=== PATIENT | male | born 1965 | race African-American/Black ===

== ENCOUNTER 2017-11-24 23:37 | Emergency (ER) | payer BC ==
--- NOTE | 2017-11-24 23:42 | EDM.PDOC ---
ED HPI GENERAL MEDICAL PROBLEM - General Chief Complaint: General Stated Complaint: PT HAS BODY CHILLS Time Seen by Provider: 11/24/17 23:42 Source of Information: Reports: Patient - History of Present Illness INITIAL COMMENTS - FREE TEXT/NARRATIVE: HISTORY AND PHYSICAL: History of present illness: []Patient presents with vague symptomology, he has described to triage nurse that he has had some vague chest pains over the last week previously he was scheduled for stress testing but had not perform that Patient states that subjectively feels as if he may have fever on arrival however this has resolved he is currently asymptomatic after a prolonged stay in the ER no fever nausea vomiting diarrhea constipation chest pain shortness breath headache dizziness or palpitation he denies any chest pain today Review of systems: As per history of present illness and below otherwise all systems reviewed and negative. Past medical history: As per history of present illness and as reviewed below otherwise noncontributory. Surgical history: As per history of present illness and as reviewed below otherwise noncontributory. Social history: No reported history of drug or alcohol abuse. Family history: As per history of present illness and as reviewed below otherwise noncontributory. Physical exam: HEENT: Atraumatic, normocephalic, pupils reactive, negative for conjunctival pallor or scleral icterus, mucous membranes moist, throat clear, neck supple, nontender, trachea midline. Lungs: Clear to auscultation, breath sounds equal bilaterally, chest nontender. Heart: S1S2, regular, negative for clicks, rubs, or JVD. Abdomen: Soft, nondistended, nontender. Negative for masses or hepatosplenomegaly. Negative for costovertebral tenderness. Pelvis: Stable nontender. Genitourinary: Deferred. Rectal: Deferred. Extremities: Atraumatic, negative for cords or calf pain. Neurovascular unremarkable. Neuro: Awake, alert, oriented. Cranial nerves II through XII unremarkable. Cerebellum unremarkable. Motor and sensory unremarkable throughout. Exam nonfocal. Diagnostics: [cBC CMP UA troponin lipase EKG Chest 1 view Therapeutics: [ normal saline bolus Zofran 8 mg IV Proton X 80 mg IV ] Patient offered observation admission and refused/declined as he is asymptomatic at this time Impression: Viral syndrome History of vague chest pains -resolved [chronic history Baseline ] Definitive disposition and diagnosis as appropriate pending reevaluation and review of above. chest area Pain Score (Numeric/FACES): 5 - Related Data Allergies Allergy/AdvReac Type Severity Reaction Status Date / Time No Known Allergies Allergy Verified 11/24/17 23:57 ED ROS GENERAL - Review of Systems Review Of Systems: See Below ED EXAM, GENERAL - Physical Exam Exam: See Below Course - Vital Signs Last Recorded V/S: Last Vital Signs Temp 99.3 F 11/24/17 23:58 Pulse 71 11/24/17 23:58 Resp 18 11/24/17 23:58 BP 156/91 H 11/24/17 23:58 Pulse Ox 98 11/24/17 23:58 - Orders/Labs/Meds Orders: Active Orders 24 hr Category Date Time Status EKG Documentation Completion [RC] STAT Care 11/24/17 23:43 Active Chest 1V Frontal [CR] Stat Exams 11/25/17 00:33 Taken CULTURE BLOOD [BC] Stat Lab 11/25/17 00:45 Received CULTURE BLOOD [BC] Stat Lab 11/25/17 00:57 Received UA W/MICROSCOPIC [URIN] Stat Lab 11/25/17 02:53 Ordered Blood Culture x2 Reflex Set [OM.PC] Stat Oth 11/25/17 00:32 Ordered Labs: Laboratory Tests 11/25/17 11/25/17 11/25/17 Range/Units 00:05 00:05 00:45 WBC 2.70 L (4.0-11.0) K/uL RBC 5.38 (4.50-5.90) M/uL Hgb 16.0 (13.0-17.0) g/dL Hct 46.9 (38.0-50.0) % MCV 87.2 (80.0-98.0) fL MCH 29.7 (27.0-32.0) pg MCHC 34.1 (31.0-37.0) g/dL RDW Std Deviation 42.3 (28.0-62.0) fl RDW Coeff of Denilson 13 (11.0-15.0) % Plt Count 157 (150-400) K/uL MPV 10.10 (7.40-12.00) fL Neut % (Auto) 54.5 (48.0-80.0) % Lymph % (Auto) 29.6 (16.0-40.0) % [place] % (Auto) 13.3 (0.0-15.0) % Eos % (Auto) 2.2 (0.0-7.0) % Baso % (Auto) 0.4 (0.0-1.5) % Neut # (Auto) 1.5 (1.4-5.7) K/uL Lymph # (Auto) 0.8 (0.6-2.4) K/uL [place] # (Auto) 0.4 (0.0-0.8) K/uL Eos # (Auto) 0.1 (0.0-0.7) K/uL Baso # (Auto) 0.0 (0.0-0.1) K/uL Nucleated RBC % 0.0 /100WBC Nucleated RBCs # 0 K/uL Lactate 1.4 (0.20-2.00) mmol/L Sodium 133 L (136-148) mmol/L Potassium 4.0 (3.5-5.1) mmol/L Chloride 102 (98-107) mmol/L Carbon Dioxide 24.2 (21.0-32.0) mmol/L BUN 13 (7.0-18.0) mg/dL Creatinine 1.3 (0.8-1.3) mg/dL Est Cr Clr Drug Dosing 86.91 mL/min Estimated GFR (MDRD) > 60.0 ml/min Glucose 165 H (74-106) mg/dL Calcium 8.7 (8.5-10.1) mg/dL Total Bilirubin 0.5 (0.2-1.0) mg/dL AST 25 (15-37) IU/L ALT 41 (14-63) IU/L Alkaline Phosphatase 64 (46-116) U/L Troponin I < 0.050 (0.000-0.056) ng/mL Total Protein 7.2 (6.4-8.2) g/dL Albumin 3.5 (3.4-5.0) g/dL Globulin 3.7 H (2.0-3.5) g/dL Albumin/Globulin Ratio 1.0 L (1.3-2.8) Lipase 240 (73-393) U/L Urine Color Urine Appearance Urine pH (5.0-8.0) Ur Specific [place] (1.001-1.035) Urine Protein (NEGATIVE) mg/dL Urine Glucose (UA) (NEGATIVE) mg/dL Urine Ketones (NEGATIVE) mg/dL Urine Occult Blood (NEGATIVE) Urine Nitrite (NEGATIVE) Urine Bilirubin (NEGATIVE) Urine Urobilinogen (<2.0) EU/dL Ur Leukocyte Esterase (NEGATIVE) Urine RBC (0-2/HPF) Urine WBC (0-5/HPF) Ur Epithelial Cells (NONE-FEW) Urine Bacteria (NEGATIVE) 11/25/17 Range/Units 02:53 WBC (4.0-11.0) K/uL RBC (4.50-5.90) M/uL Hgb (13.0-17.0) g/dL Hct (38.0-50.0) % MCV (80.0-98.0) fL MCH (27.0-32.0) pg MCHC (31.0-37.0) g/dL RDW Std Deviation (28.0-62.0) fl RDW Coeff of Denilson (11.0-15.0) % Plt Count (150-400) K/uL MPV (7.40-12.00) fL Neut % (Auto) (48.0-80.0) % Lymph % (Auto) (16.0-40.0) % [place] % (Auto) (0.0-15.0) % Eos % (Auto) (0.0-7.0) % Baso % (Auto) (0.0-1.5) % Neut # (Auto) (1.4-5.7) K/uL Lymph # (Auto) (0.6-2.4) K/uL [place] # (Auto) (0.0-0.8) K/uL Eos # (Auto) (0.0-0.7) K/uL Baso # (Auto) (0.0-0.1) K/uL Nucleated RBC % /100WBC Nucleated RBCs # K/uL Lactate (0.20-2.00) mmol/L Sodium (136-148) mmol/L Potassium (3.5-5.1) mmol/L Chloride (98-107) mmol/L Carbon Dioxide (21.0-32.0) mmol/L BUN (7.0-18.0) mg/dL Creatinine (0.8-1.3) mg/dL Est Cr Clr Drug Dosing mL/min Estimated GFR (MDRD) ml/min Glucose (74-106) mg/dL Calcium (8.5-10.1) mg/dL Total Bilirubin (0.2-1.0) mg/dL AST (15-37) IU/L ALT (14-63) IU/L Alkaline Phosphatase (46-116) U/L Troponin I (0.000-0.056) ng/mL Total Protein (6.4-8.2) g/dL Albumin (3.4-5.0) g/dL Globulin (2.0-3.5) g/dL Albumin/Globulin Ratio (1.3-2.8) Lipase (73-393) U/L Urine Color YELLOW Urine Appearance CLEAR Urine pH 6.0 (5.0-8.0) Ur Specific [place] 1.025 (1.001-1.035) Urine Protein NEGATIVE (NEGATIVE) mg/dL Urine Glucose (UA) NEGATIVE (NEGATIVE) mg/dL Urine Ketones NEGATIVE (NEGATIVE) mg/dL Urine Occult Blood NEGATIVE (NEGATIVE) Urine Nitrite NEGATIVE (NEGATIVE) Urine Bilirubin NEGATIVE (NEGATIVE) Urine Urobilinogen 1.0 (<2.0) EU/dL Ur Leukocyte Esterase NEGATIVE (NEGATIVE) Urine RBC 0-1 (0-2/HPF) Urine WBC 0-1 (0-5/HPF) Ur Epithelial Cells RARE (NONE-FEW) Urine Bacteria FEW (NEGATIVE) Meds: Medications Discontinued Medications Generic Name Dose Route Start Last Admin Trade Name Freq PRN Reason Stop Dose Admin Aspirin 324 mg 11/25/17 00:33 11/25/17 00:45 Aspirin PO 11/25/17 00:34 324 mg ONETIME ONE Administration Sodium Chloride 1,000 mls @ 999 mls/hr 11/24/17 23:43 11/25/17 00:34 Normal Saline IV 11/25/17 00:43 999 mls/hr STAT ONE Administration Pantoprazole Sodium 80 mg 11/25/17 00:33 11/25/17 00:46 Protonix Iv IVPUSH 11/25/17 00:34 80 mg .BOLUS ONE Administration Departure - Departure Time of Disposition: 03:18 Disposition: Home, Self-Care 01 Condition: Good Clinical Impression: Encounter for medical screening examination - Discharge Information Forms: ED Department Discharge Additional Instructions: Return if symptoms persist or worsen or new concerning symptoms develop Follow-up with primary care in 2 weeks sooner as needed, consider rescheduling exercise stress test with primary [facility] - Primary Care [address] [place] [id number] The following information is given to patients seen in the emergency department who are being discharged to home. This information is to outline your options for follow-up care. We provide all patients seen in our emergency department with a follow-up referral. The need for follow-up, as well as the timing and circumstances, are variable depending upon the specifics of your emergency department visit. If you don't have a primary care physician on staff, we will provide you with a referral. We always advise you to contact your personal physician following an emergency department visit to inform them of the circumstance of the visit and for follow-up with them and/or the need for any referrals to a consulting specialist. The emergency department will also refer you to a specialist when appropriate. This referral assures that you have the opportunity for follow-up care with a specialist. All of these measure are taken in an effort to provide you with optimal care, which includes your follow-up. Under all circumstances we always encourage you to contact your private physician who remains a resource for coordinating your care. When calling for follow-up care, please make the office aware that this follow-up is from your recent emergency room visit. If for any reason you are refused follow-up, please contact the emergency department at and asked to speak to the emergency department charge nurse. - My Orders Last 24 Hours: My Active Orders 11/24/17 23:43 EKG Documentation Completion [RC] STAT 11/25/17 00:32 Blood Culture x2 Reflex Set [OM.PC] Stat 11/25/17 00:33 Chest 1V Frontal [CR] Stat 11/25/17 00:45 CULTURE BLOOD [BC] Stat 11/25/17 00:57 CULTURE BLOOD [BC] Stat 11/25/17 02:53 UA W/MICROSCOPIC [URIN] Stat - Assessment/Plan Last 24 Hours: My Active Orders 11/24/17 23:43 EKG Documentation Completion [RC] STAT 11/25/17 00:32 Blood Culture x2 Reflex Set [OM.PC] Stat 11/25/17 00:33 Chest 1V Frontal [CR] Stat 11/25/17 00:45 CULTURE BLOOD [BC] Stat 11/25/17 00:57 CULTURE BLOOD [BC] Stat 11/25/17 02:53 UA W/MICROSCOPIC [URIN] Stat
[2017-11-24] MEDS ORDERED: Sodium Chloride 0.9% 1,000 ML IV ONE (23:43)
[2017-11-25] MEDS ORDERED: Aspirin 81 MG Tab.Chew PO ONE (00:33)
[2017-11-25] MEDS ORDERED: Pantoprazole 40 MG Vial IVPUSH ONE (00:33)
[2017-11-25 00:40] LABS: CHLORIDE,CL 102 mmol/L (98-107); SODIUM,NA 133 mmol/L (136-148)
--- NOTE | 2017-11-26 13:30 | CR ---
EXAM DATE: 11/24/17 PATIENT'S AGE: 52 Patient: SANDRA MORA Facility: [place], [place] Site . Site : [id number] Study: XRay Chest -11/25/2017 1:30:01 AM Ordering Physician: Marbella Silver Final Report: Indication: Shortness of breath. Technique: A single AP portable view of the chest was obtained. Comparison: None Findings: The heart is normal in size. The lungs are clear. No infiltrate, pleural effusion, or pneumothorax is identified. Impression: No acute cardiopulmonary process. Dictated by Anaid Henderson MD @ Nov 25 2017 1:30AM (Electronic Signature) Report Signed by Proxy. ESTEFANÍA
== END 2017-11-25 03:30 | disposition home or self-care (01) ==
LOC: MW.ED 23:37 → MW.MS 11-25 02:01 → UNDOADMIN 11-25 02:01 → MW.ED 11-25 03:30
DX: B34.9 Viral infection, unspecified (principal)
CPT/HCPCS: 71045; 80053; 81001; 83605; 83690; 84484; 85025; 87040; 93005; 96361; 96374; 99285; A9270; C9113; J7040; 99283

== ENCOUNTER 2019-11-09 17:13 | Emergency (ER) | payer BC, OTHER ==
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
[2019-11-09] MEDS ORDERED: Diphtheria,Pertussis(Acell),Tetanus Vaccine 0.5 ML Syringe IM ONE (17:30)
--- NOTE | 2019-11-09 17:39 | CT ---
Head CT Technique: Multiple axial sections through the brain were obtained. Intravenous contrast was not utilized. [place]: No prior intracranial imaging is available. Findings: Ventricles along with basal cisterns and sulci over the convexities are within normal limits for the patient's age. No abnormal parenchymal densities are seen. No evidence of intracranial hemorrhage. No midline shift or mass-effect is appreciated. Bone window settings were reviewed. Visualized paranasal sinuses and mastoid sinuses show nothing acute. No acute calvarial finding is seen. Impression: 1. Nothing acute is appreciated on noncontrast head CT exam. Diagnostic code #1 This report was dictated in MDT
[2019-11-09 17:42] LABS: BLOOD UREA NITROGEN,BUN 18 mg/dL (7.0-18.0); CARBON DIOXIDE,CO2 24.6 mmol/L (21.0-32.0); CHLORIDE,CL 104 mmol/L (98-107); GLUCOSE RANDOM 112 mg/dL (74-106); POTASSIUM,K 4.3 mmol/L (3.5-5.1); SODIUM,NA 139 mmol/L (136-148)
[2019-11-09] MEDS ORDERED: Ondansetron 4 MG/2 ML SDV IVPUSH ONE (17:59)
[2019-11-09] MEDS ORDERED: Morphine 4 MG/ML Syringe IVPUSH ONE (17:59)
--- NOTE | 2019-11-09 18:03 | CR ---
Right shoulder: 3 views of the right shoulder were obtained. Comparison: No prior study. Minimal spurring is noted off the inferior acromioclavicular joint. Minimal spurring is noted off the inferior glenoid. Old healed fractures with callus noted within several ribs on the right side. No acute fracture, dislocation or other bony abnormality is seen. Impression: 1. Findings as noted above. 2. Nothing acute is appreciated on right shoulder study. Diagnostic code #2 This report was dictated in MDT
[2019-11-09] MEDS ORDERED: Bacitracin Oint 1 GM U/D Packet ONE (18:46)
[2019-11-09] MEDS ORDERED: Bacitracin Oint 28.35 GM Tube TOP SCH (22:00)
== END 2019-11-09 19:05 | disposition home or self-care (01) ==
LOC: MW.ED 17:13
DX: S50.02XA Contusion of left elbow, initial encounter (principal); S50.01XA Contusion of right elbow, initial encounter; S50.12XA Contusion of left forearm, initial encounter; S50.11XA Contusion of right forearm, initial encounter; S30.1XXA Contusion of abdominal wall, initial encounter; I10 Essential (primary) hypertension; E66.9 Obesity, unspecified; I48.91 Unspecified atrial fibrillation; Z23 Encounter for immunization; Z79.01 Long term (current) use of anticoagulants; Z79.899 Other long term (current) drug therapy; Z98.890 Other specified postprocedural states; V28.9XXA Unspecified motorcycle rider injured in noncollision transport accident in traffic accident, initial encounter
CPT/HCPCS: 36415; 70450; 73030; 80053; 85027; 85610; 90471; 90715; 96374; 96375; 99285; J2270; J2405